=== PATIENT | male | born 1980 | race Caucasian/White ===

== ENCOUNTER 2017-07-30 16:09 | Emergency (ER) | payer MEDICAID, OTHER ==
[2017-07-30 16:26] VITALS: BP 102/93
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
--- NOTE | 2017-08-01 09:17 | CR ---
Hand 2V Lt HISTORY: Injury COMPARISON: None FINDINGS: There is normal alignment. There are no fractures or posttraumatic findings. There are no s ignificant degenerative changes. The soft tissues are unremarkable. IMPRESSION: Negative exam.
== END 2017-07-30 17:30 | disposition home or self-care (01) ==
LOC: JP.ED 16:09
DX: S67.191A Crushing injury of left index finger, initial encounter (principal); S67.193A Crushing injury of left middle finger, initial encounter; F17.210 Nicotine dependence, cigarettes, uncomplicated; Z88.0 Allergy status to penicillin; W23.0XXA Caught, crushed, jammed, or pinched between moving objects, initial encounter
CPT/HCPCS: 73120-26-LT; 73120-LT; 99284